=== PATIENT | male | born 1985 | race Caucasian/White ===

== ENCOUNTER → 2023-02-05 | Outpatient (CLI) | payer BC ==
--- NOTE | 2023-02-05 13:36 | XR ---
EXAM TYPE: LUMBAR SPINE X RAY SERIES COMPARISON: NONE HISTORY: Pain TECHNIQUE: 4 views are submitted. FINDINGS: Alignment is anatomic. The pedicles are intact. The transverse processes are intact. There is no s pondylolysis or spondylolisthesis. There appear to be 6 lumbar vertebral segments. Facet arthropathy involving the lower 2 lumbar levels. IMPRESSION: 1. Multilevel facet arthropathy involving the lower 2 lumbar segments. Foraminal encroachment suspect ed. Consider follow-up MRI.
== END | disposition home or self-care (01) ==
LOC: RADXRMAIN 13:00
PROVIDERS: ATTEND Family Medicine
DX: M47.816 Spondylosis without myelopathy or radiculopathy, lumbar region (principal)
CPT/HCPCS: 72100

== ENCOUNTER → 2023-03-12 | Outpatient (CLI) | payer BC ==
--- NOTE | 2023-03-12 13:43 | US ---
EXAMINATION TYPE: US liver DATE OF EXAM: 03/12/2023 COMPARISON: NONE CLINICAL INDICATION: Male, 37 years old with history of K75.81 NONALCOHOLIC STEATOHEPATITIS (BRAVO); F atty liver TECHNIQUE: Multiple sonographic images of the right upper quadrant are obtained. FINDINGS: EXAM MEASUREMENTS: Liver Length: 15.7 cm Gallbladder Wall: 0.29 cm CBD: 0.31 cm Right Kidney: 11.5 x 4.8 x 5.2 cm VEHICLE MONITOR TECHNICIAN NOTES: Pancreas: Tail obscured by overlying bowel gas Liver: Increased attenuation; focal fatty sparing noted adjacent to gallbladder Gallbladder: Limited visualization Evidence for sonographic Pérez's sign: No CBD: Limited visualization Right Kidney: wnl Difficult exam due to patient body habitus IMPRESSION: 1. Hepatic steatosis. 2. No definitive evidence of cholelithiasis or cholecystitis. 3. No evidence of right-sided hydronephrosis.
== END | disposition home or self-care (01) ==
LOC: RADUSWWP 12:43
PROVIDERS: ATTEND Family Medicine
DX: K76.0 Fatty (change of) liver, not elsewhere classified (principal)
CPT/HCPCS: 76705